=== PATIENT | male | born 1955 | race Caucasian/White ===

== ENCOUNTER 2019-04-30 08:11 | Inpatient (IN) | payer MEDICARE, MEDICAID, SELFPAY ==
[2019-04-30] VITALS (24 sets, daily range): BP systolic 96–180; BP diastolic 60–112; PULSE 87–144; RESP 16–44; TEMP 36.6–37.7; O2SAT 93–100; BMI 28.3
--- NOTE | 2019-04-30 | ECHO_ITS ---
Patient Info Name: Clinton Ruiz Age: 64 years : 1955 Gender: Male Ht: 72 in Wt: 180 lbs BSA: 2.04 m2 HR: 95 bpm BP: 98 / 64 mmHg Heart Rhythm: Sinus Rhythm Technical Quality: Good Exam Date: 04/30/2019 2:50 PM Exam Location: [facility] Patient Status: Inpatient Admit Date: 04/30/2019 Staff Ordering Physician: Michael Roberts MD Visual Developer: Jt Miranda COLIN Attending Provider: Juan Luis Hopkins MD Exam Type: CA echo dop color flow w con Study Info Indications I21.3 - ST elevation (STEMI) myocardial infarction of unspecified site Complete two-dimensional, color flow and Doppler transthoracic echocardiogram is performed with contrast to opacify the left ventrical and to improve the deliniation of the left ventrical endocarial boarders. Strain analysis performed. Contrast/Agitated Saline Contrast/Ag. Saline: Definity Amount: 2.00 ml Administered By: Nancy Watson RN History/Risk Factors STEMI and Vtach; HTN, DM2, CAD, CHF. Summary 1. Left ventricular chamber dimension is normal. 2. Left ventricular systolic function is moderately reduced, estimated at 40-45%. 3. There is mildly increased left ventricular wall thickness. 4. The left ventricular diastolic function is grade I diastolic dysfunction. 5. The anteroseptal wall, apical septum, and apical inferior wall are hypokinetic. 6. The apical cap is dyskinetic. 7. All other barfield appear normal. 8. Left atrial chamber dimension is mildly enlarged. 9. The aortic valve is probable trileaflet. 10. There is moderate aortic valve stenosis with a peak velocity of 267.19 cm/s, mean gradient of 18 mmHg, and aortic valve area of 1.29 cm2. 11. There is mild aortic valve regurgitation. 12. There is moderate aortic valve calcification. Left Ventricle Left ventricular chamber dimension is normal. Left ventricular systolic function is moderately reduced, estimated at 40-45%. There is mildly increased left ventricular wall thickness. The left ventricular diastolic function is grade I diastolic dysfunction. The anteroseptal wall, apical septum, and apical inferior wall are hypokinetic. The apical cap is dyskinetic. All other barfield appear normal. Right Ventricle Right ventricular chamber dimension is normal. Right ventricular systolic function is normal. Left Atria Left atrial chamber dimension is mildly enlarged. Right Atria Right atrial chamber dimension is normal. Aortic Valve The aortic valve is probable trileaflet. There is moderate aortic valve stenosis with a peak velocity of 267.19 cm/s, mean gradient of 18 mmHg, and aortic valve area of 1.29 cm2. There is mild aortic valve regurgitation. There is moderate aortic valve calcification. Pulmonic Valve The pulmonic valve is normal. There is no pulmonic valve stenosis. There is trace pulmonic regurgitation. Mitral Valve The mitral valve has thickened leaflets and calcified annulus. There is no mitral valve stenosis. There is trace mitral valve regurgitation. Tricuspid Valve The tricuspid valve leaflets are normal. There is no significant tricuspid valve stenosis. There is trace tricuspid valve regurgitation. Pericardium/Pleural The pericardium appears normal. There is no pericardial effusion. Inferior Vena Cava Dilated inferior vena cava with <50% collapse upon inspiration consistent with elevated right atrial pressure, 10 mmHg. Aorta The aorti
--- NOTE | ~2019-04-30 | XR_ITS ---
EXAMINATION: XR abdomen NG/feed tube insert EXAM DATE: 04/30/2019 09:27 INDICATION: Feeding tube placement. TECHNIQUE: Frontal projection(s) of the abdomen for interpretation. FINDINGS: Feeding tube tip projects over gastric cardial region, side port at the gastroesophageal j unction level. This could be safely advanced 5 cm. Suspect developing left perihilar airspace disease . Upper abdominal bowel gas pattern is unremarkable. IMPRESSION: Feeding tube tip in stomach, but could be safely advanced 5 cm. Reviewed, dictated and finalized at location B. KET CUTTER HAND
--- NOTE | ~2019-04-30 | XR_ITS ---
EXAMINATION: XR chest 1V portable DATE: 05/02/2019 05:28 INDICATION: Respiratory failure. TECHNIQUE: A single frontal view of the chest was obtained. COMPARISON: Chest single view 05/01/2019 FINDINGS: The chest demonstrates clear lungs without pneumonia, pleural effusion, or pneumothorax. Th e heart size is normal. IMPRESSION: 1. No acute cardiopulmonary disease. Reviewed, dictated and finalized at location A. AND EYE SEWING MACHINE OPERATOR
--- NOTE | ~2019-04-30 | XR_ITS ---
EXAMINATION: XR chest ET placement EXAM DATE: 04/30/2019 09:27 INDICATION: Intubated. Respiratory failure. TECHNIQUE: Portable AP frontal chest x-ray was obtained. Comparison is made to prior examination from 03/29/2017. FINDINGS: Endotracheal tube tip is 2.8 centimeters above the halley (ideal range is between 2 to 5 cm ). There is a nasogastric tube seen with tip collimated off the study, but below the left hemidiaphr agm. Tubes side port is at the level of the gastroesophageal junction, could be safely advanced 5 cm. Suspect developing left perihilar edema and/or pneumonia. There is no pneumothorax suspected. There a re no pleural effusions. Cardiomediastinal silhouette is normal. There are no osseous abnormalities i dentified. IMPRESSION: 1. NG tube could be safely advanced 5 cm. ET tube in position. 2. Suspect developing left perihilar edema and/or pneumonia. Reviewed, dictated and finalized at location B. RCALENDER OPERATOR HELPER
--- NOTE | ~2019-04-30 | CT_ITS ---
EXAMINATION: CT brain wo con DATE: 04/30/2019 13:17 INDICATION: Altered mental status. Seizure. TECHNIQUE: Computed tomography (CT) of the head was performed without intravenous contrast. The mA wa s adjusted according to patient size. Iterative reconstruction technique was employed. The dose-lengt h product was 605.33 mGy-cm. COMPARISON: None FINDINGS: There is no intracranial hemorrhage, acute infarction, or abnormal intracranial mass lesion . The ventricles are normal in size. The orbits are normal. There is mucosal thickening in the parana enrique sinuses. The mastoid air cells are normal. There is left posterior scalp soft tissue swelling. IMPRESSION: 1. Normal brain. Reviewed, dictated and finalized at location A. ING ANALYST IMPRESSION: 1. Normal brain.
--- NOTE | ~2019-04-30 | XR_ITS ---
EXAMINATION: XR chest 1V portable DATE: 05/01/2019 05:31 INDICATION: Respiratory failure. TECHNIQUE: A single frontal view of the chest was obtained. COMPARISON: Chest single view 04/30/2019, chest CT 03/21/2018 FINDINGS: There is mild atelectasis in left lower lung zone. No pleural effusion or pneumothorax. The heart size is normal. The endotracheal tube tip is 2.6 cm above the halley. The nasogastric tube tip is in the stomach. IMPRESSION: 1. Mild atelectasis in left lower lung zone. Reviewed, dictated and finalized at location A. EW ENGINEER
--- NOTE | ~2019-04-30 | XR_ITS ---
EXAMINATION: XR chest 1V portable EXAM DATE: 04/30/2019 12:26 INDICATION: Respiratory failure. Recent femoral stent. TECHNIQUE: Portable AP frontal chest x-ray was obtained. Comparison is made to prior examination from earlier same date. FINDINGS: Endotracheal tube tip is 2-3 centimeters above the halley (ideal range is between 2 to 5 cm ). There is a nasogastric tube seen with tip collimated off the study, but below the left hemidiaphr agm. The side port tip is also below the diaphragm. Suspect ill-defined left perihilar edema and/or pneumonia. Some linear retrocardiac atelectasis has d eveloped. There are no sizable pleural effusions. There is no pneumothorax suspected. Cardiomedi astinal silhouette is normal. The bones and soft tissues are unremarkable. IMPRESSION: 1. Line(s) and tube(s) in position. 2. Left perihilar ill-defined edema and/or pneumonia. 3. Development of linear basilar subsegmental atelectasis. Reviewed, dictated and finalized at location B. PATIONAL HEALTH PHYSICIAN
--- NOTE | 2019-04-30 08:15 | PC.NURSE ---
0815 Pt trying to pull IV line out and trashing in bed, VORB for soft restraints
[2019-04-30] MEDS: DEXTROSE 50% 25 GM/50 ML SYRINGE (08:25)
--- NOTE | 2019-04-30 08:32 | ED.GENADULT ---
HPI - General Adult General Chief complaint: Altered Mental Status Stated complaint: POST- ICTAL Time Seen by Provider: 04/30/19 08:31 Source: EMS and RN notes reviewed Mode of arrival: EMS Limitations: clinical condition History of Present Illness HPI narrative: Pt is a 64 y/o male who presents to the ED, via EMS, who presents to the ED with hypoglycemia. EMS reports the pt was found on the side of the road with his blood sugar levels as 55. EMS reports administering glucagon and Alpha D-50 which increased the pt's blood glucose level to 160 prior to arrival to the ED. Pt has a PMHx of diabetes. A complete HPI is unobtainable due to the pt's clinical condition. complaint: Hypoglycemia Onset (ago): unknown Radiation: non-radiation Pain Consistency: now resolved Relieving factors: none Exacerbating factors: none Related Data Home Medications Medication Instructions Recorded Confirmed blood sugar diagnostic #10 each 01/17/19 04/24/19 clomipramine 50 mg capsule 150 mg PO DAILY cap 01/17/19 04/24/19 duloxetine 60 mg capsule,delayed 60 mg PO DAILY 01/17/19 04/24/19 release sprinkle lancets 33 gauge #100 each 01/17/19 04/24/19 losartan 50 mg tablet 50 mg PO DAILY 01/17/19 04/24/19 omega-3s 350 mg-dha 100 mg-epa 225 1 cap PO DAILY 01/17/19 04/24/19 mg-other [id number] oil capsule temazepam 15 mg capsule 15 mg PO ONCE 01/17/19 04/24/19 ziprasidone HCl 80 mg capsule 80 mg PO BID 01/17/19 04/24/19 atorvastatin 20 mg tablet 20 mg PO QPM tablet 04/24/19 04/24/19 levothyroxine 25 mcg tablet 25 mcg PO QAM tablet 04/24/19 04/24/19 Allergies Allergy/AdvReac Type Severity Reaction Status Date / Time No Known Allergies Allergy Unverified 04/13/18 15:36 Review of Systems Review of Systems: Narrative: A complete ROS is unobtainable due to pt's clinical condition. PMFSH Past Medical History Medical History (Updated 04/30/19 @ 10:21 by Ciro Maxwell MD) Bipolar 1 disorder Depression Hypercholesterolemia Hypertension Pancreatitis Type 2 diabetes mellitus with hyperglycemia Surgical History Surgical History (Updated 04/30/19 @ 08:36 by Chio Bishop) H/O inguinal hernia repair Social History Social History Smoking status: Never smoker Smoking end date: 03/07/09 Alcohol intake: never Exam Const: General: confusion, diaphoretic and ill appearing acutely and chronically Nutritional Appearance: well nourished Other: moderate distress HENMT: Mouth: Yes dry mucous membranes Eyes: Pupils: Equal, round and reactive pupils present Neck: Neck: normal visual inspection Chest: Chest palpation & inspection: normal inspection of the chest Resp: Effort & Inspection: normal respiratory effort Auscultation: clear to auscultation bilaterally Cardio: Rate: tachycardic Rhythm: regular rhythm GI: GI Palp: Yes Soft to palpation Other: laparotmy scar Skin: General skin exam: normal color Neuro: Other: restless, agitated, frequent jerking non-puposeful movements. responds to painful stimuli Extrem: General: normal to inspection Course Vital Signs Vital signs: Vital Signs Pulse Rate 144 H 04/30/19 08:10 Respiratory Rate 44 H 04/30/19 08:10 Blood Pressure 96/60 L 04/30/19 08:10 Pulse Oximetry 93 04/30/19 08:10 Temperature 36.6 C 04/30/19 10:09 Pulse Rate 131 H 04/30/19 10:22 Respiratory Rate 28 H 04/30/19 10:09 Blood Pressure 178/112 H 04/30/19 10:09 Pulse Oximetry 98 04/30/19 10:22 Procedures Intubation Intubation #1: Intubation Date: 04/30/19 sedative: Etomidate Mg Given: 20 paralytic: Succinylcholine Mg Given: 100 Laryngoscope: Lauryn Tube Size (cm): 8.0 Method of Intubation: orotracheal Number of Attempts: 1 Tube Secured Depth (cm): 26 Tube Secured Location: lips Tube Placement Confirmation: visualized tube passing
[2019-04-30] MEDS: SODIUM CHLORIDE 0.9% IV 1,000 ML 999 ML (08:37)
[2019-04-30] MEDS: LORAZEPAM INJ 2 MG/ML VIAL (08:37)
--- NOTE | 2019-04-30 08:37 | PC.NURSE ---
0825: VORB for amb of D50
--- NOTE | 2019-04-30 08:37 | PC.NURSE ---
0837: VORB, normal saline and 2 mg of Ativan
[2019-04-30] MEDS: MIDAZOLAM HCL 2 MG/2 ML VIAL 4 MG (08:45)
--- NOTE | 2019-04-30 08:45 | PC.NURSE ---
VORB 4 mg Versed IVP
[2019-04-30 08:47] LABS: Glucose Point of Care 196 (65-105)
[2019-04-30 08:47] LABS: Glucose Point of Care 57 (65-105)
--- NOTE | 2019-04-30 08:52 | ECG_ITS ---
Measurements Intervals [place] Rate: 126 P: -76 TX: 177 QRS: -20 QRSD: 122 T: 96 QT: 281 QTc: 408 Interpretive Statements SINUS OR ECTOPIC ATRIAL TACHYCARDIA VENTRICULAR PREMATURE COMPLEXES ANTEROSEPTAL ST ELEVATION MYOCARDIAL INFARCT- ACUTE BASELINE ARTIFACT- II, III, V3-V6 ABNORMAL ECG Electronically Signed On 04-30-2019 13:33:25 STEAMBOAT PILOT by Jose Pack D.O.
--- NOTE | 2019-04-30 09:02 | PC.NURSE ---
Pt is still thrashing and not responding. MD at bedside to intubate pt.
--- NOTE | 2019-04-30 09:03 | PC.NURSE ---
VORB 0909: 20mg Etomidate, 100mg Succ
[2019-04-30] MEDS: RAPID SEQUENCE INTUBATION KIT 1 EACH (09:09)
--- NOTE | 2019-04-30 09:10 | PC.NURSE ---
Pt intubated at this time. size 8 tube, 26 at the lip. good color change, good chest rise, equal breath sounds
--- NOTE | 2019-04-30 09:31 | ECG_ITS ---
Measurements Intervals [place] Rate: 130 P: -64 IN: 169 QRS: 12 QRSD: 116 T: 106 QT: 273 QTc: 402 Interpretive Statements SINUS OR ECTOPIC ATRIAL TACHYCARDIA LOW QRS VOLTAGE IN PRECORDIAL LEADS ANTEROSEPTAL ST ELEVATION MYOCARDIAL INFARCT- ACUTE ABNORMAL ECG Electronically Signed On 04-30-2019 13:34:05 CLINICAL SERVICES MANAGER by Jose Pack D.O.
--- NOTE | 2019-04-30 09:31 | PC.NURSE ---
VORB bolus of diprivan 20mg 50mg Rocc
[2019-04-30] MEDS: PROPOFOL IV EMULSION 100 ML 2.4 MG IV CONT (09:36)
[2019-04-30 09:41] LABS: Hematocrit 41.5 % (42.0-52.0); Hemoglobin 13.7 g/dL (14.0-18.0); Mean Corpuscular Hemoglobin 29.7 pg (26-34); Mean Platelet Volume 10.5 fl (7.4-10.4); Platelet Count Result 326 k/mm3 (150-375); Red Blood Count 4.61 M/mm3 (4.6-6.20); Red Cell Distribution Width 12.9 % (11.5-14.5); White Blood Count 27.2 K/mm3 (4.5-10.0)
[2019-04-30 09:43] LABS: Alveolar/Arterial O2 Gradient 223.6 mmHg; Fractional Inspired Oxygen 50 %; HCO3 ABG 16.6 mEq/l (22.0-26.0); Oxygen Saturation ABG 94.2 % (95.0-100.0); Oxyhemoglobin 92.5 % THb (90.0-100.0); PCO2 ABG 42.9 mmHg (35.0-45.0); PO2 ABG 84.6 mmHg (80.0-100.0); PO2 FiO2 Ratio Arterial Blood 1.69 %; Total Hemoglobin 14.6 g/dL (12.0-18.0)
[2019-04-30 09:45] LABS: Device VENTILATOR; Modified Allen's Test Pass; Site Drawn LEFT RADIAL; pH ABG 7.205 (7.350-7.450)
[2019-04-30 09:46] LABS: Arterial Blood Gas PEEP 5 cmH2O; Arterial Blood Gas Tidal Volume 450 ml; Arterial Blood Gas Vent Mode CMV; Arterial Blood Gas Ventilator rate 14 /MIN
--- NOTE | 2019-04-30 09:47 | PC.NURSE ---
0948 Pt goes into Vtach. pt has a palpable pulse. shock given
[2019-04-30] MEDS: AMIODARONE 150 MG/3 ML VIAL (09:50)
--- NOTE | 2019-04-30 09:50 | PC.NURSE ---
0950: VORB 150mg amiodirone given over 10 mins
[2019-04-30 09:51] LABS: INR 0.9; Prothrombin Time 12.3 Seconds (11.1-14.7)
[2019-04-30 09:52] LABS: Partial Thromboplastin Time 26.3 SECONDS (22.3-36.8)
[2019-04-30 09:53] LABS: Band Neutrophils Percent 6 % (0-6); Burr Cells 1+ (NORMAL); Lymphocytes Absolute Manual 2.17 K/mm3 (1.1-4.5); Monocytes Absolute Manual 1.08 K/mm3 (0.1-0.90); Monocytes Percent Manual 4 % (3-9); Neutrophils Absolute Manual 23.93 K/mm3 (1.3-6.7); Neutrophils Percent Manual 82 % (46-73); Ovalocytes 1+ (NORMAL); Platelet Estimate Adequate (Adequate); Poikilocytosis 1+ (NORMAL); Total Cells Counted 100
[2019-04-30 10:01] LABS: Albumin Level 4.9 g/dL (3.5-5.1); Alkaline Phosphatase 66 U/L (38-126); Ammonia 28 umol/L (9-30); Aspartate Amino Transferase 56 U/L (17-59); Bilirubin,Total 0.4 mg/dL (0.2-1.3); Blood Urea Nitrogen 18 mg/dL (9-20); Calcium 8.8 mg/dL (8.4-10.2); Carbon Dioxide 18 mmol/L (22-30); Chloride 100 mmol/L (98-107); Estimated Glomerular Filt Rate > 60; Glucose 234 mg/dL (75-110); Potassium 3.8 mmol/L (3.4-5.0); Sodium 143 mmol/L (137-145)
[2019-04-30 10:03] LABS: Lactic Acid Reflex 8.1 mmol/L (0.7-2.1)
--- NOTE | 2019-04-30 10:03 | PC.NURSE ---
Dr. Butler here at this time assessing at this time
[2019-04-30 10:10] LABS: Troponin I 0.669 ng/mL (0.000-0.034)
--- NOTE | 2019-04-30 10:16 | PM.IMHP ---
H&P: HPI History of Present Illness Chief complaint: STEMI Narrative: Clinton Ruiz is a 64 year old male Who I am seeing in the emergency room at the request of the staff because of ECG abnormalities and ventricular tachycardia. There is no history available because the patient is then paralyzed intubated and sedated. What I am told is that the patient was found disc collapse on the street to this morning and by bystanders he apparently told that he was diabetic. 911 was called to the scene and found him in a semi responsive state and he was brought to the emergency room for further evaluation. Apparently was given glucose in the field. There is no report that he was complaining about any chest pain. When he was in the emergency room they found him to be very combative and agitated and so he was paralyzed sedated and intubated. Laboratory data was collected which demonstrates high white blood cell count mild anemia and electrolytes that are relatively normal. Troponin levels are pending and electrocardiogram after he was sedated demonstrates sinus tachycardia with precordial ST segment elevation and inferior and lateral ST segment depression. Also of concern is in the emergency room he was having nonsustained runs of ventricular tachycardia. A short time ago he had a sustained run of monomorphic ventricular tachycardia which was terminated electrically after which his Bol[place] placed on an amiodarone infusion. In this setting I am seeing him in consultation. The patient's belongings which seemed leading to the suspicion that he is homeless he has soiled or wet clothes from being out in the rain and a soiled wet backpack. Because of the unclear situation but with ST segment elevation and ventricular a arrhythmias as described above I have made the decision to bring him urgently to the cardiac catheterization lab for angiography. Other than the verbal report that he is diabetic there is no other medical history available. there is an electrocardiogram in the record from 2017 that shows anterior Q-waves but no ST segment deviation Review of Systems Review of Systems: ROS unobtainable: unobtainable due to mental status PMFSH Past Medical History Medical History (Updated 04/30/19 @ 10:21 by Ciro Maxwell MD) Bipolar 1 disorder Depression Hypercholesterolemia Hypertension Pancreatitis Type 2 diabetes mellitus with hyperglycemia Surgical History Surgical History (Updated 04/30/19 @ 08:36 by Chio Bishop) H/O inguinal hernia repair Social History Social History Smoking status: Never smoker Smoking end date: 03/07/09 Alcohol intake: never Meds Home Medications and Allergies Home Medications Medication Instructions Recorded Confirmed Type blood sugar diagnostic #10 each 01/17/19 04/24/19 History clomipramine 50 mg capsule 150 mg PO DAILY cap 01/17/19 04/24/19 History duloxetine 60 mg capsule,delayed 60 mg PO DAILY 01/17/19 04/24/19 History release sprinkle lancets 33 gauge #100 each 01/17/19 04/24/19 History losartan 50 mg tablet 50 mg PO DAILY 01/17/19 04/24/19 History omega-3s 350 mg-dha 100 mg-epa 225 1 cap PO DAILY 01/17/19 04/24/19 History mg-other [id number] oil capsule temazepam 15 mg capsule 15 mg PO ONCE 01/17/19 04/24/19 History ziprasidone HCl 80 mg capsule 80 mg PO BID 01/17/19 04/24/19 History insulin syringe,safetyneedle 0.5 #400 each 01/19/19 04/24/19 Rx mL 31 gauge x 15/64 atorvastatin 20 mg tablet 20 mg PO QPM tablet 04/24/19 04/24/19 History insulin glargine 100 unit/mL 30 unit SUB-Q QPM 90 Days #30 ml 04/24/19 04/24/19 Rx subcutaneous solution insulin lispro 100 unit/mL See Rx Instructions SUB-Q TID 90 04/24/19 04/24/19 Rx subcutaneous solution Days #50 ml levothyroxine 25 mcg tablet 25 mcg PO QAM tablet 04/24/19 04/24/19 History metformin 500 mg tablet 500 mg PO BID #180 tablet 04/24/19 04/24/19 Rx Allergies
[2019-04-30 10:17] LABS: Add Urine Microscopic? YES; Appearance Urine Clear (Clear); Bilirubin Urine Negative (Negative); Blood Urine 2+ (Negative); Color Urine Yellow (Yellow); Glucose Urine UA 2+ mg/dL (Negative); Hyaline Casts Urine 15-19 /lpf; Ketones Urine Trace mg/dL (Negative); Leukocyte Esterase Ur Negative LEU/UL (Negative); Mucus Urine Rare /lpf; Nitrate Urine Negative (Negative); Protein Urine 2+ mg/dL (Negative); RBC Urine 0-2 /hpf (0-2); Specific Grav Ur 1.019 (1.001-1.035); Urobilinogen Urine Negative mg/dL (<2.0); WBC Urine 0-3 /hpf
[2019-04-30 10:26] LABS: Alanine Aminotransferase 30 U/L (4-50)
[2019-04-30 10:32] LABS: Amphetamine Screen Urine Negative (Negative); Barbiturate Screen Urine Negative (Negative); Benzodiazepines Screen Urine Positive (Negative); Cannabinoid Screen Urine Negative (Negative); Cocaine Screen Urine Negative (Negative); Methadone Screen Urine Negative (Negative); Opiate Screen Urine Negative (Negative); Phencyclidine Screen Urine Negative (Negative)
[2019-04-30 10:37] LABS: Glucose Point of Care 212 (65-105)
--- NOTE | 2019-04-30 11:36 | WPDCARDPROC ---
Cardiac Cath Procedure Note Date of procedure:: 04/30/19 Performing physician:: Juan Luis Hopkins MD Indication:: patient presenting in unresponsive condition ECG concerning regarding acute myocardial injury old ECG demonstrating anterior Q-waves ventricular tachycardia necessitating electrical termination in the emergency room patient intubated no further history available Brief clinical history:: this is a 64-year-old patient who apparently collapsed on the street And was found by bystanders. 911 was called and he was brought to the emergency room agitated and distress was sedated and intubated in the ED. Electrocardiogram abnormalities were concerning for the possibility of anterior infarction. There is an old ECG from 2017 demonstrating anterior Q-waves. According to the records the patient is diabetic. In the ED the patient had some nonsustained runs of VT and a run of sustained VT that required electrical termination. Because of these arrhythmias and ECG abnormalities urgent angiography has been recommended Procedure Procedure performed:: left heart catheterization with left ventriculography and coronary angiography attempt to perform PCI on totally occluded LAD Sedation/Medication given:: propofol IV infusion initiated in the emergency department Access site:: right femoral artery Estimated blood loss:: 15-20 cc Procedure note:: patient was brought to the cardiac catheterization lab in the emergent setting described above. He was intubated sedated and IV propofol running. The right femoral triangle was prepared in the usual sterile fashion and right femoral artery was punctured using the modified Seldinger technique after this a 5 Prydeinig vascular sheath was placed. A 5 Prydeinig angled pigtail catheter was used to perform left ventriculography in the [place] projection and to record left ventricular hemodynamics. Following this ICU stay 5 Prydeinig FL4 catheter to engage and inject the left coronary artery in multiple projections. Following this a JR4 catheter was used to inject the right coronary artery. After review of the cineangiograms I changed the 5 Prydeinig sheath to a 6 Prydeinig over a guidewire patient was given a bolus of Angiomax for systemic anticoagulation and I attempted PCI of the LAD. After a number of attempts the occlusion of the LAD could not be crossed with a guidewire with reasonable success and the vessel was deemed to be a RN RESIDENTIAL. After this the sheath was sutured into position the patient was taken to the ICU for post cath, post VT arrest treatment and recovery. Findings:: The central aortic pressure was 118/66 left ventricle 140/0 end-diastolic of 17 there is a 20 mm gradient on pullback across the aortic valve. the left ventricle is moderately dilated the anterior wall from the midportion down to the apex is akinetic the base of the anterior wall is severely hypodynamic. The global left ventricular ejection fraction is visually estimated to be 30% the left main coronary artery is medium in caliber with mild atherosclerosis but no flow-limiting disease the LAD is 100% occluded at its origin from the left main. There is minimal late reconstitution of the trunk of the LAD with collateral filling from the circumflex. Circumflex is a moderate caliber artery giving rise to 2 sizable marginal branches and a posterior branch the circumflex vessels have mild luminal irregularities but no flow-limiting disease. Right coronary artery is large in caliber and dominant to the posterior circulation the right coronary artery also has mild diffuse luminal irregularities but no flow-limiting disease. There is very well-developed collateral flow from the distal right coronary artery to the septal branches of the LAD and to the trunk of the LAD itself all the way back to its origin. Because of the clinical presentation described above I elected to attempt to perform PCI of the proximal occlusion of the LAD as the presentation,
--- NOTE | 2019-04-30 12:03 | WPDCNINT ---
Assessment and Plan Assessment and plan (1) Acute respiratory failure: Code(s): J96.00 - Acute respiratory failure, unspecified whether with hypoxia or hypercapnia Status: Acute Assessment and Plan: Acute Respiratory failure secondary to Pulmonary edema, Encephalopathy and ? CAP vs Aspiration Continue full mechanical ventilation support to prevent hypoxemia/hypercarbia and end organ damage. ABG and PCXR reviewed and will repeat Low tidal volume ventilation strategy to prevent volutrauma Will attempt SBT when ready to wean. Bronchodilators Check Sputum, Blood Cx Check Flu Empiric Zosyn and Azithromycin (2) Sepsis: Code(s): A41.9 - Sepsis, unspecified organism Status: Acute Assessment and Plan: Secondary to suspected CAP vs Aspiration Empiric broad spectrum antibiotics for now zosyn and doxy. Cultures ? Blood and Sputum. Influenza Monitor LA (3) Pneumonia: Code(s): J18.9 - Pneumonia, unspecified organism Status: Acute Assessment and Plan: see above (4) Pulmonary edema: Code(s): J81.1 - Chronic pulmonary edema Status: Acute Assessment and Plan: Lasix when hemodynamics stable (5) ST elevation (STEMI) myocardial infarction: Qualifiers: Involved coronary artery: unspecified coronary artery Qualified Code(s): I21.3 - ST elevation (STEMI) myocardial infarction of unspecified site Code(s): I21.3 - ST elevation (STEMI) myocardial infarction of unspecified site Status: Acute Assessment and Plan: S/P Angiogram which showed chronic obstruction of LAD. no intervention was done ASA, Statin, ARB, BB (6) Ventricular tachycardia: Code(s): I47.2 - Ventricular tachycardia Status: Acute Assessment and Plan: Amio infusion ECHO (7) CAD (coronary artery disease): Code(s): I25.10 - Atherosclerotic heart disease of [place] coronary artery without angina pectoris Status: Acute Assessment and Plan: see above (8) CHF (congestive heart failure): Code(s): I50.9 - Heart failure, unspecified Status: Acute Assessment and Plan: Check ECHO (9) Type 2 diabetes mellitus with hyperglycemia: Code(s): E11.65 - Type 2 diabetes mellitus with hyperglycemia Status: Acute Assessment and Plan: sliding scale insulin (10) Encephalopathy: Code(s): G93.40 - Encephalopathy, unspecified Status: Acute Assessment and Plan: Encephalopathy ? Hypoglycemia vs seizure and post ictal Appears to have improved as he is following commands. Head CT is pending Monitor and treat hypoglycemia Sedation holiday when stable Additional Plan DVT prophylaxis - Lovenox Stress ulcer prophylaxis - Pepcid Nutrition - NPO Code Status - Full Code No Family at bedside Total Crticial Care Time - 35 minutes Due to a high probability of clinically significant, life threatening deterioration, the patient required my highest level of preparedness to intervene emergently and I personally spent this critical care time directly and personally managing the patient. This critical care time included obtaining a history; examining the patient; pulse oximetry; ordering and review of studies; arranging urgent treatment with development of a management plan; evaluation of patient's response to treatment; frequent reassessment; and discussions with other providers. It was exclusive of separately billable procedures and treating other patients and teaching time. Please see Assessment and Plan section and the rest of the note for further information on patient assessment and treatment Uniform Attendant Consult Note Consult date: 04/30/19 Time Seen: 12:00 HPI: Clinton Ruiz is a 64-year-old male with past medical history of diabetes hyperlipidemia and pancreatitis was brought to ER after he was found down. His blood sugar was 55 he was given glucagon and dextrose by EMS. In the ER patient
--- NOTE | 2019-04-30 12:10 | ADMGEN ---
This patient, Clinton Ruiz, was admitted to Intensive Care Unit-6 at 1155. Patient oriented to hospital policies and general routines including ID bracelet, bed and alarms, visiting hours, pain management, procedures, bathroom and other care routines, personal items, smoking policy, room service/diet, and visiting hours. Valuables list has been completed. Information on how to activate the Rapid Response Team has been discussed. Patient encouraged to report perceived risks to care and to ask questions if they do not understand what they are told or what they should do.
[2019-04-30 12:23] LABS: Influenza Control Positive
[2019-04-30 12:39] LABS: Alveolar/Arterial O2 Gradient 204.3 mmHg; Base Excess ABG -6.3 mEq/l (+/-2.0); Fractional Inspired Oxygen 50 %; HCO3 ABG 18.9 mEq/l (22.0-26.0); Oxygen Saturation ABG 97.8 % (95.0-100.0); Oxyhemoglobin 96.2 % THb (90.0-100.0); PCO2 ABG 36.9 mmHg (35.0-45.0); PO2 ABG 110.7 mmHg (80.0-100.0); PO2 FiO2 Ratio Arterial Blood 2.21 %; Total Hemoglobin 13.2 g/dL (12.0-18.0); pH ABG 7.328 (7.350-7.450)
[2019-04-30 12:39] LABS: Reflex Lactic Acid Yes or No Add Lactic
[2019-04-30] MEDS: AMIODARONE 360 MG/D5W 200 ML 360 MG/200 ML BAG 33.3 MG IV CONT (12:39)
[2019-04-30] MEDS: PROPOFOL IV EMULSION 100 ML 19.4 MG IV CONT (12:39)
[2019-04-30 12:40] LABS: Arterial Blood Gas Ventilator rate 18 /MIN; Device VENTILATOR; Modified Allen's Test Pass; Site Drawn RIGHT RADIAL
[2019-04-30 12:41] LABS: Arterial Blood Gas PEEP 5 cmH2O; Arterial Blood Gas Tidal Volume 450 ml; Arterial Blood Gas Vent Mode CMV
[2019-04-30 13:13] LABS: Lactic Acid 1.4 mmol/L (0.7-2.1)
[2019-04-30 13:22] LABS: NT Pro B Type Natriuretic Pept 139 PG/ML (5-100)
[2019-04-30] MEDS: ATORVASTATIN 40 MG TABLET PO (14:18)
[2019-04-30] MEDS: LOSARTAN POTASSIUM 25 MG TABLET PO (14:18)
[2019-04-30] MEDS: METOPROLOL TARTRATE 25 MG TABLET FEED TUBE ×3 (14:18→23:04)
[2019-04-30 14:31] LABS: Glucose Point of Care 203 (65-105)
[2019-04-30 14:31] LABS: Glucose Point of Care 179 (65-105)
[2019-04-30] MEDS: PERFLUTREN LIPID MICROSPHERES 1.5 ML VIAL DILUTED TO 10 ML TOTAL VOLUME IV PUSH (15:24)
[2019-04-30] MEDS: PROPOFOL IV EMULSION 100 ML 24.3 MG IV CONT ×3 (16:02→23:08)
[2019-04-30 17:31] LABS: Glucose Point of Care 190 (65-105)
[2019-04-30] MEDS: AMIODARONE 360 MG/D5W 200 ML 360 MG/200 ML BAG 16.7 MG IV CONT (18:37)
[2019-04-30 19:14] LABS: Lactic Acid 1.2 mmol/L (0.7-2.1)
[2019-04-30 19:45] LABS: Glucose Point of Care 185 (65-105)
[2019-04-30] MEDS: FAMOTIDINE 20 MG/2 ML VIAL IV PUSH (20:40)
[2019-04-30 23:03] LABS: Glucose Point of Care 214 (65-105)
[2019-04-30] MEDS: INSULIN ASPART (*BKC) 100 UNITS/ML SUB-Q (23:04)
[2019-05-01] VITALS (20 sets, daily range): BP systolic 107–123; BP diastolic 52–82; PULSE 75–93; RESP 14–22; TEMP 36.5–37.7; O2SAT 95–100; BMI 27.6
[2019-05-01] MEDS: PROPOFOL IV EMULSION 100 ML 24.3 MG IV CONT ×2 (02:49→06:45)
[2019-05-01 02:56] LABS: Glucose Point of Care 172 (65-105)
[2019-05-01 05:04] LABS: Alveolar/Arterial O2 Gradient 100.7 mmHg; Base Excess ABG 0.2 mEq/l (+/-2.0); Carboxyhemoglobin 0.3 % THb (0-2.0); Fractional Inspired Oxygen 30 %; HCO3 ABG 22.6 mEq/l (22.0-26.0); Methemoglobin ABG 0.2 %THb (0-1.5); Oxygen Content ABG 17.5 %vol (16.0-22.0); Oxygen Saturation ABG 96.5 % (95.0-100.0); Oxyhemoglobin 94.7 % THb (90.0-100.0); PCO2 ABG 30.3 mmHg (35.0-45.0); PO2 ABG 77.6 mmHg (80.0-100.0); PO2 FiO2 Ratio Arterial Blood 2.59 %; Reduced Hemoglobin 4.8 %THb (0-5.0); Total Hemoglobin 13.1 g/dL (12.0-18.0); pH ABG 7.491 (7.350-7.450)
[2019-05-01 05:07] LABS: Arterial Blood Gas PEEP 5 cmH2O; Arterial Blood Gas Vent Mode CMV; Arterial Blood Gas Ventilator rate 18 /MIN; Device VENTILATOR; Modified Allen's Test Unable to perform; Site Drawn LEFT RADIAL
[2019-05-01 05:08] LABS: Arterial Blood Gas Tidal Volume 450 ml
[2019-05-01 05:08] LABS: Hematocrit 36.7 % (42.0-52.0); Hemoglobin 12.3 g/dL (14.0-18.0); Mean Corpuscular HGB Conc 33.5 g/dl (32-36); Mean Corpuscular Hemoglobin 29.8 pg (26-34); Mean Corpuscular Volume 88.9 fl (80-100); Mean Platelet Volume 11.1 fl (7.4-10.4); Platelet Count Result 247 k/mm3 (150-375); Red Blood Count 4.13 M/mm3 (4.6-6.20); Red Cell Distribution Width 13.2 % (11.5-14.5); White Blood Count 14.5 K/mm3 (4.5-10.0)
--- NOTE | 2019-05-01 05:11 | ECG_ITS ---
Measurements Intervals [place] Rate: 82 P: 43 NE: 200 QRS: -9 QRSD: 111 T: 55 QT: 402 QTc: 471 Interpretive Statements SINUS RHYTHM LOW QRS VOLTAGE IN PRECORDIAL LEADS INCOMPLETE RIGHT BUNDLE BRANCH BLOCK ANTEROSEPTAL INFARCT, AGE INDETERMINATE BORDERLINE ST-T WAVE ABNORMALITY- LATERAL LEADS ABNORMAL ECG Electronically Signed On 05-01-2019 8:16:50 DENTAL HYGIENIST MOBILE COORDINATOR by Jose Pack D.O.
[2019-05-01] MEDS: AMIODARONE 360 MG/D5W 200 ML 360 MG/200 ML BAG 16.7 MG IV CONT (05:21)
[2019-05-01] MEDS: METOPROLOL TARTRATE 25 MG TABLET FEED TUBE ×4 (05:23→23:51)
[2019-05-01 05:37] LABS: Alanine Aminotransferase 54 U/L (4-50); Albumin Level 3.9 g/dL (3.5-5.1); Alkaline Phosphatase 57 U/L (38-126); Aspartate Amino Transferase 335 U/L (17-59); Bilirubin,Total 0.7 mg/dL (0.2-1.3); Blood Urea Nitrogen 14 mg/dL (9-20); Calcium 8.7 mg/dL (8.4-10.2); Carbon Dioxide 25 mmol/L (22-30); Chloride 103 mmol/L (98-107); Estimated CRCL calculation 75 ml/min; Estimated Glomerular Filt Rate > 60; Glucose 187 mg/dL (75-110); Potassium 3.7 mmol/L (3.4-5.0); Sodium 138 mmol/L (137-145)
--- NOTE | 2019-05-01 07:15 | WPDINTPN ---
Progress Note: A&P Assessment and Plan (1) Acute respiratory failure: Code(s): J96.00 - Acute respiratory failure, unspecified whether with hypoxia or hypercapnia Status: Acute Assessment and Plan: Acute Respiratory failure secondary to Pulmonary edema, Encephalopathy and ? CAP vs Aspiration Continue full mechanical ventilation support to prevent hypoxemia/hypercarbia and end organ damage. ABG and PCXR reviewed SBT today. Extubate if successful Decrease TV to 400 and RR to 16 Bronchodilators Sputum, Blood Cx pending Influenza Negative Empiric Zosyn and Doxy (2) Sepsis: Code(s): A41.9 - Sepsis, unspecified organism Status: Acute Assessment and Plan: Secondary to suspected CAP vs Aspiration Empiric broad spectrum antibiotics for now zosyn and doxy. Cultures ? Blood and Sputumpending Influenza Negative LA normalised (3) Pneumonia: Code(s): J18.9 - Pneumonia, unspecified organism Status: Acute Assessment and Plan: see above (4) Pulmonary edema: Code(s): J81.1 - Chronic pulmonary edema Status: Acute Assessment and Plan: Lasix 40 mg IV x 1 (5) ST elevation (STEMI) myocardial infarction: Qualifiers: Involved coronary artery: unspecified coronary artery Qualified Code(s): I21.3 - ST elevation (STEMI) myocardial infarction of unspecified site Code(s): I21.3 - ST elevation (STEMI) myocardial infarction of unspecified site Status: Acute Assessment and Plan: S/P Angiogram which showed chronic obstruction of LAD. no intervention was done ASA, Statin, ARB, BB (6) Ventricular tachycardia: Code(s): I47.2 - Ventricular tachycardia Status: Acute Assessment and Plan: Amio infusion ECHO ordered (7) CAD (coronary artery disease): Code(s): I25.10 - Atherosclerotic heart disease of [place] coronary artery without angina pectoris Status: Acute Assessment and Plan: see above (8) CHF (congestive heart failure): Code(s): I50.9 - Heart failure, unspecified Status: Acute Assessment and Plan: Check ECHO (9) Type 2 diabetes mellitus with hyperglycemia: Code(s): E11.65 - Type 2 diabetes mellitus with hyperglycemia Status: Acute Assessment and Plan: sliding scale insulin Add Lantus (10) Encephalopathy: Code(s): G93.40 - Encephalopathy, unspecified Status: Acute Assessment and Plan: Encephalopathy ? Hypoglycemia vs seizure and post ictal Appears to have improved as he is following commands. Head CT is pending hypoglycemia resolved. Sedation holiday Additional Plan DVT prophylaxis - Lovenox Stress ulcer prophylaxis - Pepcid Nutrition - NPO Code Status - Full Code No Family at bedside Total Crticial Care Time - 30 minutes Due to a high probability of clinically significant, life threatening deterioration, the patient required my highest level of preparedness to intervene emergently and I personally spent this critical care time directly and personally managing the patient. This critical care time included obtaining a history; examining the patient; pulse oximetry; ordering and review of studies; arranging urgent treatment with development of a management plan; evaluation of patient's response to treatment; frequent reassessment; and discussions with other providers. It was exclusive of separately billable procedures and treating other patients and teaching time. Please see Assessment and Plan section and the rest of the note for further information on patient assessment and treatment Subjective Date/time seen: 05/01/19 07:15 Overnight events reviewed Afebrile Continues to be on mechanical ventilation Agitated when sedation off but moves all 4 ext and follows commands Vitals acceptable Review of Systems Review of Systems: ROS unobtainable: unobtainable due to endotracheal tube and unobtainable due to mental stat
[2019-05-01] MEDS: LOSARTAN POTASSIUM 25 MG TABLET PO (08:55)
[2019-05-01] MEDS: FAMOTIDINE 20 MG/2 ML VIAL IV PUSH ×2 (08:55→20:20)
[2019-05-01] MEDS: ATORVASTATIN 40 MG TABLET PO (08:55)
[2019-05-01] MEDS: ASPIRIN 81 MG CHEWABLE TABLET PO (08:55)
[2019-05-01 09:07] LABS: Alveolar/Arterial O2 Gradient 87.4 mmHg; Base Excess ABG -3.7 mEq/l (+/-2.0); Carboxyhemoglobin 0.3 % THb (0-2.0); Fractional Inspired Oxygen 30 %; HCO3 ABG 20.4 mEq/l (22.0-26.0); Methemoglobin ABG 0.2 %THb (0-1.5); Oxygen Content ABG 17.9 %vol (16.0-22.0); Oxygen Saturation ABG 96.6 % (95.0-100.0); Oxyhemoglobin 94.9 % THb (90.0-100.0); PCO2 ABG 34.2 mmHg (35.0-45.0); PO2 ABG 86.3 mmHg (80.0-100.0); PO2 FiO2 Ratio Arterial Blood 2.88 %; Reduced Hemoglobin 4.6 %THb (0-5.0); Total Hemoglobin 13.4 g/dL (12.0-18.0); pH ABG 7.394 (7.350-7.450)
[2019-05-01 09:08] LABS: Arterial Blood Gas Vent Mode SPONTANEOUS; Arterial Blood Gas Ventilator rate 0 /MIN; Device VENTILATOR; Peak Inspiratory Pressure 0 cmH2O; Site Drawn LEFT BRACHIAL
[2019-05-01 09:09] LABS: Arterial Blood Gas Minute Volume 0 LPM; Arterial Blood Gas PEEP 5 cmH2O; Arterial Blood Gas Pressure Support 5 cmH2O; Arterial Blood Gas Tidal Volume 0 ml
[2019-05-01] MEDS: ENOXAPARIN 40 MG/0.4 ML SYRINGE SUB-Q (09:11)
[2019-05-01] MEDS: INSULIN ASPART (*BKC) 100 UNITS/ML SUB-Q ×4 (09:12→20:28)
[2019-05-01] MEDS: FUROSEMIDE INJ 40 MG/4 ML VIAL IV PUSH (09:15)
[2019-05-01 09:25] LABS: Glucose Point of Care 215 (65-105)
--- NOTE | 2019-05-01 11:07 | PM.PNCARD ---
Progress Note: A&P Assessment and Plan (1) CAD (coronary artery disease): Code(s): I25.10 - Atherosclerotic heart disease of [place] coronary artery without angina pectoris Status: Acute Assessment and Plan: catheterization yesterday revealed occluded LAD. No intervention performed. This is likely a CT 0. Will changed amiodarone from IV amiodarone to oral amiodarone. 400 mg p.o. b.i.d.. lower before discharge (2) Ventricular tachycardia: Code(s): I47.2 - Ventricular tachycardia Status: Acute Assessment and Plan: probably from scar from previous LAD infarction (3) Essential hypertension: Code(s): I10 - Essential (primary) hypertension Status: Acute Assessment and Plan: at goal (4) Sepsis: Code(s): A41.9 - Sepsis, unspecified organism Status: Acute Assessment and Plan: on antibiotics Subjective Date/time seen: 05/01/19 11:07 Interval history: Reason for admission: Possible STEMI, ventricular tachycardia, respiratory failure Date of service 05/01/2019: Patient is still intubated but awake and appears agitated. Moving all extremities. Review of Systems Review of Systems: All systems reviewed & are unremarkable except as noted in HPI and below Constitutional: Constitutional: Reports as per HPI Eyes: Eyes: Denies blurry vision ENT: Denies nasal discharge Cardiovascular: Cardiovascular: Denies diaphoresis Respiratory: Respiratory: Denies cough and Denies hemoptysis Gastrointestinal: Gastrointestinal: Denies melena Genitourinary: Genitourinary: Denies dysuria Musculoskeletal: Musculoskeletal: Reports as per HPI Integumentary/Breasts: Skin/Breast: Denies erythema Neurologic: Denies confusion Psychiatric: Psychiatric: Reports as per HPI Endocrine: Endocrine: Denies excessive sweating Hematologic/Lymphatic: Hematologic/Lymphatic: Denies easy bruising Allergic/Immunologic: Allergic/Immunologic: Denies tongue swelling Exam Narrative: Exam Narrative: Intubated Const: General: uncomfortable HENMT: General nose exam: no epistaxis Eyes: Sclera: sclerae normal Neck: Neck: no JVD Resp: Auscultation: diminished lung sounds Cardio: Rate: regular rate Rhythm: regular rhythm Other: right groin is without hematoma ecchymosis or bruit GI: Inspection: non-distended Skin: Lesions: no lesions noted Neuro: Motor exam (neuro): 5/5 motor strength present throughout Extrem: General: no edema and no pedal edema Psych: Mental Status: mental status grossly normal Objective Data Vital Signs Vital Signs: Vital Signs - 24 hr 04/30/19 11:55 04/30/19 11:58 04/30/19 12:00 Temperature 37.0 C Pulse Rate 102 H 101 H 104 H Respiratory Rate 18 Blood Pressure 104/86 Pulse Oximetry 100 99 04/30/19 12:16 04/30/19 13:40 04/30/19 14:00 Temperature Pulse Rate 102 H 95 91 Respiratory Rate 19 18 Blood Pressure 126/71 100/63 Pulse Oximetry 100 100 100 04/30/19 14:18 04/30/19 16:00 04/30/19 16:55 Temperature 37.2 C Pulse Rate 93 88 87 Respiratory Rate 18 Blood Pressure 124/73 Pulse Oximetry 100 100 04/30/19 18:00 04/30/19 18:41 04/30/19 20:00 Temperature 37.7 C H Pulse Rate 88 87 89 Respiratory Rate 16 18 Blood Pressure 122/76 120/81 Pulse Oximetry 100 100 04/30/19 21:29 04/30/19 22:00 04/30/19 23:04 Temperature Pulse Rate 91 88 88 Respiratory Rate 18 Blood Pressure 135/64 Pulse Oximetry 99 100 04/30/19 23:09 05/01/19 00:00 05/01/19 02:00 Temperature 37.6 C H Pulse Rate 88 81 75 Respiratory Rate 18 18 Blood Pressure 117/73 107/71 Pulse Oximetry 100 100 100 05/01/19 02:23 05/01/19 04:00 05/01/19 05:12 Temperature 37.6 C Pulse Rate 75 76 78 Respiratory Rate 18 Blood Pressure 120/68 Pulse Oximetry 100 100 98 05/01/19 05:23 05/01/19 06:00 05/01/19 07:57 Temperature Pulse Rate 79 79 84 Respiratory Rate 18 Blood Pressure 10
[2019-05-01] MEDS: INSULIN GLARGINE (*BKC) 100 UNITS/ML 10 UNITS SUB-Q (13:15)
[2019-05-01 13:31] LABS: Glucose Point of Care 246 (65-105)
[2019-05-01] MEDS: AMIODARONE HCL 200 MG TABLET 400 MG PO (18:06)
[2019-05-01 18:21] LABS: Glucose Point of Care 304 (65-105)
[2019-05-01 20:21] LABS: Glucose Point of Care 265 (65-105)
[2019-05-01 23:58] LABS: Glucose Point of Care 187 (65-105)
[2019-05-02] VITALS (14 sets, daily range): BP systolic 114–141; BP diastolic 73–79; PULSE 78–98; RESP 14–23; TEMP 36.4–36.8; O2SAT 95–100
[2019-05-02 04:47] LABS: Hematocrit 38.4 % (42.0-52.0); Hemoglobin 13.1 g/dL (14.0-18.0); Mean Corpuscular HGB Conc 34.1 g/dl (32-36); Mean Corpuscular Volume 88.1 fl (80-100); Mean Platelet Volume 10.8 fl (7.4-10.4); Platelet Count Result 244 k/mm3 (150-375); Red Blood Count 4.36 M/mm3 (4.6-6.20); Red Cell Distribution Width 12.9 % (11.5-14.5)
[2019-05-02 05:05] LABS: Alanine Aminotransferase 42 U/L (4-50); Albumin Level 4.3 g/dL (3.5-5.1); Alkaline Phosphatase 71 U/L (38-126); Aspartate Amino Transferase 136 U/L (17-59); Bilirubin,Total 0.8 mg/dL (0.2-1.3); Blood Urea Nitrogen 17 mg/dL (9-20); Calcium 8.9 mg/dL (8.4-10.2); Carbon Dioxide 23 mmol/L (22-30); Chloride 99 mmol/L (98-107); Estimated CRCL calculation 83 ml/min; Estimated Glomerular Filt Rate > 60; Glucose 262 mg/dL (75-110); Magnesium 1.9 mg/dL (1.6-2.3); Potassium 3.9 mmol/L (3.4-5.0); Sodium 138 mmol/L (137-145)
[2019-05-02] MEDS: INSULIN ASPART (*BKC) 100 UNITS/ML SUB-Q ×3 (05:13→12:09)
[2019-05-02] MEDS: METOPROLOL TARTRATE 25 MG TABLET FEED TUBE ×2 (05:13→12:08)
[2019-05-02] MEDS: LEVOTHYROXINE SODIUM 25 MCG TABLET PO (05:13)
--- NOTE | 2019-05-02 07:00 | WPDINTPN ---
Progress Note: A&P Assessment and Plan (1) Acute respiratory failure: Code(s): J96.00 - Acute respiratory failure, unspecified whether with hypoxia or hypercapnia Status: Acute Assessment and Plan: Acute Respiratory failure secondary to Pulmonary edema, Encephalopathy and ? CAP vs Aspiration patient was extubated yesterday and is now saturating well on nasal cannula Bronchodilators Sputum, Blood Cx negative Influenza Negative continue Empiric Zosyn and Doxy (2) Sepsis: Code(s): A41.9 - Sepsis, unspecified organism Status: Acute Assessment and Plan: Secondary to suspected CAP vs Aspiration Empiric broad spectrum antibiotics for now zosyn and doxy. Cultures ? Blood and Sputum negative Influenza Negative LA normalised (3) Pneumonia: Code(s): J18.9 - Pneumonia, unspecified organism Status: Acute Assessment and Plan: see above (4) Pulmonary edema: Code(s): J81.1 - Chronic pulmonary edema Status: Acute Assessment and Plan: Lasix 40 mg IV x 1 was given yesterday continue as needed (5) ST elevation (STEMI) myocardial infarction: Qualifiers: Involved coronary artery: unspecified coronary artery Qualified Code(s): I21.3 - ST elevation (STEMI) myocardial infarction of unspecified site Code(s): I21.3 - ST elevation (STEMI) myocardial infarction of unspecified site Status: Acute Assessment and Plan: S/P Angiogram which showed chronic obstruction of LAD. no intervention was done continueASA, Statin, ARB, BB (6) Ventricular tachycardia: Code(s): I47.2 - Ventricular tachycardia Status: Acute Assessment and Plan: Amio infusion ECHO ordered (7) CAD (coronary artery disease): Code(s): I25.10 - Atherosclerotic heart disease of [place] coronary artery without angina pectoris Status: Acute Assessment and Plan: see above (8) CHF (congestive heart failure): Code(s): I50.9 - Heart failure, unspecified Status: Acute Assessment and Plan: ECHO reviewed (9) Type 2 diabetes mellitus with hyperglycemia: Code(s): E11.65 - Type 2 diabetes mellitus with hyperglycemia Status: Acute Assessment and Plan: sliding scale insulin increase Lantus (10) Encephalopathy: Code(s): G93.40 - Encephalopathy, unspecified Status: Acute Assessment and Plan: Encephalopathy ? Hypoglycemia vs seizure and post ictal now resolved Head CT is pending hypoglycemia resolved. Additional Plan DVT prophylaxis - Lovenox Stress ulcer prophylaxis - Pepcid Nutrition - diet advanced Code Status - Full Code PT and OT No Family at bedside Transfer out of ICU today Subjective Date/time seen: 05/02/19 07:00 Interval history: Patient was extubated yesterday and has done well. not on any vasopressors patient denies any new complaints today. He feels much better. afebrile and saturating well on nasal cannula Review of Systems Constitutional: Constitutional: Reports no additional constitutional complaints Eyes: Eyes: Reports no additional eye complaints ENT: Reports system reviewed and no additional complaints, except as documented Cardiovascular: Cardiovascular: Reports no additional cardiovascular complaints, Denies chest pain and Denies irregular heart rhythm Respiratory: Respiratory: Reports no additional respiratory complaints and Denies cough Gastrointestinal: Gastrointestinal: Reports no additional gastrointestinal complaints Genitourinary: Genitourinary: Reports no additional male genitourinary complaints Comments: [place] Musculoskeletal: Musculoskeletal: Reports no additional musculoskeletal complaints Integumentary/Breasts: Skin/Breast: Reports system reviewed and no additional complaints, except as docu Neurologic: Reports system reviewed and no additional complaints, except as documented Psychiatric: Psyc
[2019-05-02 08:04] LABS: Glucose Point of Care 216 (65-105)
[2019-05-02] MEDS: INSULIN GLARGINE (*BKC) 100 UNITS/ML 25 UNITS SUB-Q (08:10)
[2019-05-02] MEDS: CLOMIPRAMINE HCL 25 MG CAPSULE 150 MG PO (09:47)
[2019-05-02] MEDS: AMIODARONE HCL 200 MG TABLET 400 MG PO (09:48)
[2019-05-02] MEDS: LOSARTAN POTASSIUM 25 MG TABLET PO (09:48)
--- NOTE | 2019-05-02 09:48 | PM.PNCARD ---
Progress Note: A&P Additional Plan 64-year-old gentleman with: Coronary artery disease with chronic total occlusion of the LAD and significant ischemic LV dysfunction is result of this. There was no significant circumflex or RCA disease. Patient has mild asymptomatic aortic valve stenosis as well Patient admitted with collapsed outside of the hospital and sustained monomorphic ventricular tachycardia in the emergency room. Initially felt the possibly have acute ST-elevation [place] however the LAD was obviously a MARINE ERECTOR and old record reviewed does corroborate this as well. Now that he is clinically stable had a long discussion with the patient today about his electrical risk and he does require and qualify for ICD implantation DS had a rescued arrest with monomorphic ventricular tachycardia. Will discuss transferring him to [facility] for electrophysiology consultation and ICD implantation prior to discharge. Time Spent With Patient Time with patient: 15 - 25 minutes Subjective Date/time seen: 05/02/19 09:48 Interval history: Follow-up visit for cardiac arrest due to sustained monomorphic ventricular tachycardia 64-year-old man with history of MARINE ERECTOR of the LAD which was demonstrated angiographically a number of years ago but the records were not available on the morning of presentation. As such as expected attempted PCI of the total occlusion of the LAD was unsuccessful. Patient is now doing much better he is extubated hemodynamically stable in sinus rhythm and is neurologically intact. Long conversation with the patient about his electrical risk because of a significant anterior wall scar with chronic total occlusion of his LAD. Exam Const: General: comfortable and no acute distress HENMT: Mouth: Yes moist mucous membranes Eyes: Sclera: sclerae normal Pupils: Equal, round and reactive pupils present Neck: Neck: supple and no JVD Thyroid: thyroid normal Resp: Effort & Inspection: normal respiratory effort Auscultation: clear to auscultation bilaterally Cardio: Rate: regular rate Rhythm: regular rhythm Heart sounds: Murmur heart sound present systolic II/ and at the base GI: Auscultation: normal bowel sounds Skin: General skin exam: normal color Neuro: Cognition (Neuro): normal cognition Extrem: General: normal to inspection Objective Data Vital Signs Vital Signs: Vital Signs - 24 hr 05/01/19 10:00 05/01/19 12:00 05/01/19 14:00 Temperature 37.0 C Pulse Rate 77 81 84 Respiratory Rate 14 21 H 22 H Blood Pressure 112/82 123/72 112/67 Pulse Oximetry 100 97 95 05/01/19 16:00 05/01/19 18:00 05/01/19 18:06 Temperature Pulse Rate 87 90 92 Respiratory Rate 22 H 19 Blood Pressure 115/67 120/78 Pulse Oximetry 96 97 05/01/19 20:00 05/01/19 22:00 05/01/19 23:51 Temperature 36.5 C Pulse Rate 91 82 89 Respiratory Rate 16 17 Blood Pressure 116/52 L 115/69 Pulse Oximetry 97 98 05/02/19 00:00 05/02/19 01:56 05/02/19 02:00 Temperature 36.7 C Pulse Rate 90 84 83 Respiratory Rate 19 19 Blood Pressure 141/77 H 114/73 Pulse Oximetry 97 98 05/02/19 03:22 05/02/19 04:00 05/02/19 05:13 Temperature 36.6 C Pulse Rate 84 85 89 Respiratory Rate 14 21 H Blood Pressure 126/75 Pulse Oximetry 97 98 05/02/19 05:56 05/02/19 06:00 05/02/19 08:00 Temperature 36.8 C Pulse Rate 80 78 78 Respiratory Rate 18 15 Blood Pressure 117/79 117/79 Pulse Oximetry 97 98 05/02/19 08:05 Temperature Pulse Rate Respiratory Rate Blood Pressure Pulse Oximetry 95 Intake/Output Intake/Output: Intake & Output 04/29/19 04/30/19 05/01/19 05/02/19 23:59 23:59 23:59 23:59 Intake Total 1830 2270 1010 Output Total 1800 1400 550 Balance 30 870 460 Meds/Results Medications: Active Medications Generic Name Dose Route Start Last Admin Trade Name Marckq PRN Reason Stop Dose Admin Albuterol 2.5 mg 04/30/19 12:14 Albuterol Sulf Neb 2.5mg/0.5ml INHALATION Q6HRT P
[2019-05-02] MEDS: ATORVASTATIN 40 MG TABLET PO (09:49)
[2019-05-02] MEDS: DULOXETINE 60 MG CAPSULE.DR PO (09:49)
[2019-05-02] MEDS: FAMOTIDINE 20 MG/2 ML VIAL IV PUSH (09:50)
[2019-05-02] MEDS: ENOXAPARIN 40 MG/0.4 ML SYRINGE SUB-Q (09:54)
[2019-05-02] MEDS: ASPIRIN 81 MG CHEWABLE TABLET PO (09:58)
[2019-05-02 12:09] LABS: Glucose Point of Care 286 (65-105)
--- NOTE | 2019-05-02 13:40 | PC.NURSE ---
Report called to SIDNEY Simmons at [facility]. All questions answered.
--- NOTE | 2019-05-02 14:21 | PC.NURSE ---
Called patient's sister Shireen to notify of transfer to [place].
--- NOTE | 2019-06-01 13:19 | PM.TDS ---
Transfer Discharge Sum: Prov Provider Date of admission: 04/30/19 10:09 Primary care physician: UNKNOWN,DOCTOR Admitting clinician: Juan Luis Hopkins MD Consults: 04/30/19 11:31 Cardiac Rehabilitation Referral Routine Intention for Rehab:: Not a candidate DS: Diagnosis Admitting Diagnosis Admitting Diagnosis: Sepsis, unspecified organism Transfer Discharge Sum: Med Medications Active and Home Medications: Home Medications blood sugar diagnostic #10 each 01/17/19 [History Confirmed 05/01/19] clomipramine 50 mg capsule 150 mg PO DAILY cap 01/17/19 [History Confirmed 05/01/19] duloxetine 60 mg capsule,delayed release sprinkle 60 mg PO DAILY 01/17/19 [History Confirmed 05/01/19] lancets 33 gauge #100 each 01/17/19 [History Confirmed 05/01/19] losartan 50 mg tablet 50 mg PO DAILY 01/17/19 [History Confirmed 05/01/19] omega-3s 350 mg-dha 100 mg-epa 225 mg-other [id number] oil capsule 1 cap PO DAILY 01/17/19 [History Confirmed 05/01/19] ziprasidone HCl 80 mg capsule 80 mg PO BID 01/17/19 [History Confirmed 05/01/19] atorvastatin 20 mg tablet 20 mg PO QPM tablet 04/24/19 [History Confirmed 05/01/19] insulin glargine 100 unit/mL subcutaneous solution 30 unit SUB-Q QPM 90 Days #30 ml 04/24/19 [Rx Confirmed 05/01/19] insulin lispro 100 unit/mL subcutaneous solution See Rx Instructions SUB-Q TID 90 Days #50 ml 04/24/19 [Rx Confirmed 05/01/19] levothyroxine 25 mcg tablet 25 mcg PO QAM tablet 04/24/19 [History Confirmed 05/01/19] metformin 500 mg tablet 500 mg PO BID #180 tablet 04/24/19 [Rx Confirmed 05/01/19] trazodone 50 mg PO HS 05/01/19 [History Confirmed 05/01/19] zolpidem 10 mg PO HS PRN 05/01/19 [History Confirmed 05/01/19] insulin syringe,safetyneedle 0.5 mL 31 gauge x 15/64 #400 each 06/01/19 [Rx] Transfer Discharge Sum: Hosp Hospital Course Hospital course: Clinton Ruiz is a 64 year old male who was brought to the emergency room on the day of admission after being found unresponsive on the street and in the rain. The patient was hypoglycemic and had a history of diabetes he was given glucose and was brought to the emergency room and was somewhat combative. His electrocardiogram was interpreted as concerning for a acute anterior wall infarction. There was no history that he was complaining of any sort of chest pain. In that setting emergency angiography was recommended as STEMI protocol was activated. The patient was brought to the cardiac catheterization lab as was requested. He is found to have what appeared to be a chronic total occlusion of the LAD with evidence of a previous anterior infarction. There were no other coronary lesions, his left main circumflex and right coronary arteries were not diseased significantly. The patient had a run of ventricular tachycardia on admission which was terminated electrically in the emergency room. Because of the VT/arrest implantation of an all automatic implantable defibrillator was recommended. As we do not performed secondary prevention defibrillators at this hospital he was transferred to [facility] for evaluation by the electrophysiology service to consider defibrillator implantation. The patient was not felt to be suitable for discharge to home without a protection of a defibrillator Time Spent with Patient Time attestation: Total time spent providing and/or coordinating transfer services: 60 minutes Exam Const: General: comfortable and no acute distress HENMT: Mouth: Yes dry mucous membranes Eyes: Sclera: sclerae normal Pupils: Equal, round and reactive pupils present Neck: Neck: supple and no JVD Thyroid: thyroid normal Resp: Effort & Inspection: normal respiratory effort Other: Breath sounds diminished but essentially clear Cardio: Rate: regular rate Rhythm: regular rhythm Other: PMI slight laterally displaced GI: GI Palp: Yes Soft to palpation Auscultation: normal bowel sounds Skin: General skin exam: normal color Neuro: Cognition (N
== END 2019-05-02 15:23 | disposition short-term general hospital (02) | DRG 871 ==
LOC: ANHED 10:10 → ANHICU 10:13
PROVIDERS: Internal Medicine; Admitting Provider Specialist; Emergency Provider Emergency Medicine; Visit Provider Specialist
PROC: 4A023N7 Measurement of Cardiac Sampling and Pressure, Left Heart, Percutaneous Approach (ICD-10-PCS; CPT 93452; principal; 2019-04-30 10:30)
PROC: 4A023N7 Measurement of Cardiac Sampling and Pressure, Left Heart, Percutaneous Approach (ICD-10-PCS; CPT 92920; 2019-04-30 10:30)
DX: A41.9 Sepsis, unspecified organism (principal); J96.00 Acute respiratory failure, unspecified whether with hypoxia or hypercapnia; J18.9 Pneumonia, unspecified organism; J69.0 Pneumonitis due to inhalation of food and vomit; I47.2 Ventricular tachycardia; G93.49 Other encephalopathy; E78.00 Pure hypercholesterolemia, unspecified; E11.649 Type 2 diabetes mellitus with hypoglycemia without coma; I25.82 Chronic total occlusion of coronary artery; E11.65 Type 2 diabetes mellitus with hyperglycemia; I50.9 Heart failure, unspecified; I35.0 Nonrheumatic aortic (valve) stenosis; I11.0 Hypertensive heart disease with heart failure; I25.10 Atherosclerotic heart disease of native coronary artery without angina pectoris; I25.2 Old myocardial infarction
CPT/HCPCS: 31500; 36415; 36600; 70450; 71045; 80053; 80307; 81001; 82140; 82375; 82805; 83050; 83605; 83735; 83880; 84484; 85025; 85027; 85610; 85730; 87040; 87070; 87081; 87147; 87205; 87804; 92920; 92960; 93005; 93458; 94003; 96365; 96366; 96367; 96368; 96375; 96376; 97165; 99291; A9270; C1769; C1887; C1894; C8929; J0282; J0583; J1644; J1650; J1815; J1940; J2060; J2250; J2543; J2704; J3480; J7030; J7040; J7060; L1830; Q9957

== ENCOUNTER 2019-08-10 12:51 | Emergency (ER) | payer MEDICARE, MEDICAID, SELFPAY ==
[2019-08-10 13:02] VITALS: BP 108/81; PULSE 87; RESP 20; TEMP 36.8; O2SAT 100
--- NOTE | 2019-08-10 13:09 | ED.SKABFB ---
HPI - Skin/Abscess/Foreign Bdy General Chief complaint: Skin/Abscess/Foreign Body Stated complaint: infected finger Time Seen by Provider: 08/10/19 13:05 Source: patient and RN notes reviewed Mode of arrival: ambulatory Limitations: no limitations History of Present Illness HPI narrative: Patient presents today complaining of redness, swelling, and pain to the left fourth finger x2 weeks. Seems to be worsening. Currently rates his pain 5/10 and has been applying topical antibiotic ointment without relief. Patient is type II diabetic for which he uses insulin. MD complaint: discoloration Related Data Home Medications Medication Instructions Recorded Confirmed lancets 33 gauge #100 each 01/17/19 08/10/19 atorvastatin [Lipitor] 40 mg PO DAILY 08/10/19 08/10/19 blood sugar diagnostic [OneTouch 08/10/19 08/10/19 Ultra Blue Test Strip] clomipramine 50 mg PO BID 08/10/19 08/10/19 duloxetine [Cymbalta] 60 mg PO DAILY 08/10/19 08/10/19 insulin glargine [Lantus U-100 1 unit SUBCUT DAILY 08/10/19 08/10/19 Insulin] insulin lispro [Humalog U-100 1 sliding scale dose SUBCUT 08/10/19 08/10/19 Insulin] USEASDIRECTD losartan 50 mg PO DAILY 08/10/19 08/10/19 metformin [Glucophage] 500 mg PO BID 08/10/19 08/10/19 metoprolol tartrate [Lopressor] 25 mg PO DAILY 08/10/19 08/10/19 trazodone 50 mg PO DAILY 08/10/19 08/10/19 ziprasidone HCl [Geodon] 80 mg PO BID 08/10/19 08/10/19 Allergies Allergy/AdvReac Type Severity Reaction Status Date / Time No Known Allergies Allergy Verified 08/10/19 13:07 Review of Systems Review of Systems: Narrative: CONSTITUTIONAL: Denies body aches, fever, chills, or sweats. EYES: Denies visual changes, redness, or discharge. ENT: Denies rhinorrhea, congestion, sore throat, or otalgia. CARDIOVASCULAR: Denies chest pain, palpitations, or edema. RESPIRATORY: Denies cough or dyspnea. GASTROINTESTINAL: Denies abdominal pain, nausea, vomiting, or diarrhea. GENITOURINARY: Denies dysuria or hematuria. SKIN: + Redness and swelling the left fourth finger MUSCULOSKELETAL: Denies back pain, joint pain, or myalgia. NEUROLOGIC: Denies headache, numbness, tingling, or weakness. PSYCH: Denies depression or anxiety. PMFSH Social History Social History Smoking status: Former smoker Smoking end date: 03/07/09 Alcohol intake: former Substance use: former Substance use type: unknown Gender identity (if verbalized by the patient): Male Spiritual care concerns: No Exam Narrative: Exam Narrative: GENERAL: Well-appearing, well-nourished, and in no acute distress. HEAD: Normocephalic, atraumatic. EYES: EOMI. No redness or drainage. Conjunctivae normal. ENT: Mucous membranes pink and moist. NECK: Normal AROM. CHEST: No respiratory distress. EXTREMITIES: Erythema and moderate edema to the distal phalanx of the left fourth finger with subungual abscess/paronychia noted. Tender to palpation. SKIN: Warm, dry, no rash. Capillary refill normal. Normal skin turgor. NEURO: No focal deficits. Alert and oriented x3. Gait steady. PSYCH: Normal affect. No signs of depression or anxiety. Course Vital Signs Vital signs: Vital Signs Temperature 98.2 F 08/10/19 13:02 Pulse Rate 87 08/10/19 13:02 Respiratory Rate 08/10/19 13:02 Blood Pressure 108/81 08/10/19 13:02 Pulse Oximetry 100 08/10/19 13:02 Temperature 98.2 F 08/10/19 13:02 Pulse Rate 87 08/10/19 13:02 Respiratory Rate 08/10/19 13:02 Blood Pressure 108/81 08/10/19 13:02 Pulse Oximetry 100 08/10/19 13:02 Reviewed. Pt has been instructed to follow up with his PCP regarding his elevated blood pressure today. Procedures Nail Trephination Nail Trephination #1: Nail Trephination Date: 08/10/19 Nail Trephination Time: 13:11 Time out: Yes Location (finger): left Location (toes): fourth digit Sterile prep: betadine
== END 2019-08-10 13:21 | disposition home or self-care (01) ==
PROVIDERS: Emergency Provider Nurse Practitioner; PCP Emergency Medicine
DX: L03.012 Cellulitis of left finger (principal); I25.10 Atherosclerotic heart disease of native coronary artery without angina pectoris; I10 Essential (primary) hypertension; E11.9 Type 2 diabetes mellitus without complications; Z79.4 Long term (current) use of insulin; Z87.891 Personal history of nicotine dependence
CPT/HCPCS: 26010; 99213; G0463

== ENCOUNTER 2020-02-12 10:49 | Outpatient (CLI) | payer MEDICARE, MEDICAID, SELFPAY ==
--- NOTE | ~2020-02-12 | CT_ITS ---
EXAMINATION:CT lung screening DATE: 02/12/2020 11:12 INDICATION: Personal history of nicotine dependence. Smoker who quit 11 years ago with 75 pack year h istory. TECHNIQUE: Computed tomography (CT) of the chest was performed without intravenous contrast. Automate d exposure control and iterative reconstruction technique were employed. The dose-length product (DLP ) was 137.93 mGy-cm. COMPARISON: Chest CT 03/21/2018 FINDINGS: The lungs demonstrate minimal atelectasis. No pleural effusion. The heart size is normal. T here are coronary artery calcifications. No pericardial effusion. There are calcifications of aortic valve. There is a right chest wall pacer with leads in the right atrium and right ventricle. There ar e changes of ventral hernia repair in the abdomen. There is severe cervical spondylosis and mild thor acic spondylosis. IMPRESSION: 1. Lung-RADS category 1: Negative. Continue annual screening with noncontrast low-dose chest CT in 12 months. Reviewed, dictated and finalized at location B. [facility] [employer] IMPRESSION: 1. Lung-RADS category 1: Negative. Continue annual screening with noncontrast l ow-dose chest CT in 12 months.
== END 2020-02-12 10:50 | disposition home or self-care (01) ==
PROVIDERS: PCP Emergency Medicine; Visit Provider Emergency Medicine
DX: Z12.2 Encounter for screening for malignant neoplasm of respiratory organs (principal); Z87.891 Personal history of nicotine dependence
CPT/HCPCS: G0297